=== PATIENT | female | born 1940 | race Two or more races ===

== ENCOUNTER 2025-03-21 00:13 | Inpatient (IN) | payer MEDICARE, OTHER ==
[~2025-03-21] VITALS: Ht 160 cm; Wt 46.3 kg
[2025-03-21] MEDS: IV NS 0.9% 1,000 ML BAG IV ONE (00:52)
[2025-03-21 00:57] LABS: PLATELET COUNT (AUTO) 221 K/uL (150-450); RED BLOOD CELL COUNT(AUTO) 3.73 MIL/uL (4.0-5.2); RED CELL DISTRIBUTION WIDTH 14.7 % (11.5-15.0); WHITE BLOOD COUNT (AUTO) 6.1 K/uL (4.3-11.0)
[2025-03-21 01:03] LABS: CALCIUM, SERUM 8.7 mg/dL (8.5-10.1); CREATININE 0.6 mg/dL (0.6-1.3); SODIUM SERUM 126.0 mmol/L (136-145); UREA NITROGEN, BLOOD 14.0 mg/dL (7-18)
[2025-03-21 01:09] LABS: ASPARTATE AMINOTRANSFERASE 20.0 U/L (15-37); TOTAL PROTEIN, SERUM 6.5 g/dL (6.4-8.2)
[2025-03-21 01:48] LABS: APPEARANCE,URINE SLIGHTLY CLOUDY (CLEAR); BLOOD, URINE TRACE-INTA Ery/uL (NEGATIVE); LEUKOCYTE ESTERASE ,URINE 2+ (NEGATIVE); NITRITE, URINE POSITIVE (NEGATIVE); UGLUCOSE NEGATIVE (NEGATIVE)
[2025-03-21 02:41] LABS: ADD URINE CULTURE YES; SQUAMOUS EPITHELIAL CELL,UR Few /HPF (None Seen); TRIPLE PHOSPHATE CRYSTAL,UR Few /HPF (None Seen)
[2025-03-21] MEDS ORDERED: CEFTRIAXONE 1GM BAG (ER ONLY) 50 ML IV ONE (03:05)
[2025-03-21] MEDS ORDERED: BUPR-54 PO (03:13)
[2025-03-21] MEDS ORDERED: OXYB10TA30 PO (03:13)
[2025-03-21] MEDS ORDERED: ESCI10TA PO (03:13)
[2025-03-21] MEDS ORDERED: VIT1CAPS44 PO (03:13)
[2025-03-21] MEDS ORDERED: AMIN30LI2 PO (03:13)
[2025-03-21] MEDS ORDERED: DOCU100T2 PO (03:13)
[2025-03-21] MEDS ORDERED: CHOL400T11 PO (03:13)
[2025-03-21] MEDS ORDERED: LORA10TA7 PO (03:13)
[2025-03-21] MEDS ORDERED: LEVO25TA7 PO (03:13)
[2025-03-21] MEDS ORDERED: AMLO-212 PO (03:13)
[2025-03-21] MEDS ORDERED: PANT20TA2 PO (03:13)
[2025-03-21] MEDS ORDERED: DIGO125T PO (03:13)
[2025-03-21] MEDS ORDERED: GABA-536 PO (03:13)
[2025-03-21] MEDS ORDERED: MULT-594 PO (03:13)
[2025-03-21] MEDS ORDERED: TRAZ-182 PO (03:14)
[2025-03-21] MEDS ORDERED: LATA7.5D EACHEYE (03:14)
[2025-03-21] MEDS ORDERED: PROP20TA7 PO (03:14)
[2025-03-21] MEDS ORDERED: MIRT-121 PO (03:14)
[2025-03-21] MEDS ORDERED: RIVA15TA PO (03:14)
[2025-03-21] MEDS: CEFTRIAXONE 1GM BAG (ER ONLY) 1 GM/50 ML PIGGYBACK IV ONE (03:20)
[2025-03-21] MEDS: IV NS 0.9% 1,000 ML IV SCH (04:21)
[2025-03-21] MEDS ORDERED: Z GUARD REMEDY 4 OZ OINT TP PRN (04:30)
[2025-03-21] MEDS ORDERED: ACETAMINOPHEN 650 MG/SUPP.RECT RC PRN (04:30)
[2025-03-21] MEDS ORDERED: ONDANSETRON HCL/PF 4 MG/2 ML VIAL IVP PRN (04:30)
[2025-03-21 08:00] VITALS: BP 159/61; TEMP 98.1; O2SAT 99
[2025-03-21] MEDS: CHOLECALCIFEROL (VITAMIN D 3) 400 UNIT TABLET PO SCH (10:19)
[2025-03-21] MEDS: GABAPENTIN 400 MG CAPSULE PO SCH (10:19)
[2025-03-21] MEDS: PROPRANOLOL HCL 40 MG TABLET PO SCH (10:20)
[2025-03-21] MEDS: DOCUSATE SODIUM 100 MG CAPSULE PO SCH (10:20)
[2025-03-21] MEDS: LEVOTHYROXINE SODIUM 25 MCG TABLET PO SCH (10:21)
[2025-03-21] MEDS: PANTOPRAZOLE 40 MG TABLET.DR PO SCH (10:21)
[2025-03-21] MEDS: AMLODIPINE BESYLATE 5 MG TABLET PO SCH (10:22)
[2025-03-21] MEDS: OXYBUTYNIN CHLORIDE ER 5 MG TAB PO SCH (10:22)
[2025-03-21] MEDS: BUPROPION XL 150 MG TAB.ER.24 PO SCH (10:24)
[2025-03-21] MEDS: ESCITALOPRAM OXALATE (10 MG) 10 MG TABLET PO SCH (10:24)
[2025-03-21] MEDS: DIGOXIN 0.125 MG TABLET PO SCH (10:35)
[2025-03-21] MEDS: RIVAROXABAN 15 MG TABLET PO SCH (10:41)
[2025-03-21] MEDS: HYDROCODONE/APAP 5/325MG TABLET PO PRN (14:27)
[2025-03-21 16:00] VITALS: BP 126/95; TEMP 98.2; O2SAT 96
[2025-03-21] MEDS: LATANOPROST EYE DROP 0.005% 2.5 ML BOTTLE EACHEYE SCH (18:23)
[2025-03-21 20:00] VITALS: BP 100/56; TEMP 97.7; O2SAT 94
[2025-03-21 20:34] VITALS: BP 100/56; TEMP 97.7; O2SAT 94
[2025-03-21] MEDS: TRAZODONE 50 MG TABLET PO SCH (21:59)
[2025-03-21 23:07] LABS: CREATININE, URINE 39.4 MG/DL (30.0-125.0); URINE SODIUM, RANDOM 69.0 mmol/l (40-220); URINE TOTAL PROTEIN 48.6 mg/dL (0-11.9)
[2025-03-22 04:00] VITALS: BP 117/49; TEMP 97.7; O2SAT 92
[2025-03-22 07:00] VITALS: BP 164/51; TEMP 98.2; O2SAT 95
[2025-03-22 08:08] LABS: CALCIUM, SERUM 8.5 mg/dL (8.5-10.1); CREATININE 0.3 mg/dL (0.6-1.3); PHOSPHORUS 3.3 mg/dL (2.5-4.9); SODIUM SERUM 133.0 mmol/L (136-145); UREA NITROGEN, BLOOD 9.0 mg/dL (7-18)
[2025-03-22 08:44] LABS: PLATELET COUNT (AUTO) 161 K/uL (150-450); RED BLOOD CELL COUNT(AUTO) 3.92 MIL/uL (4.0-5.2); RED CELL DISTRIBUTION WIDTH 16.9 % (11.5-15.0); WHITE BLOOD COUNT (AUTO) 4.3 K/uL (4.3-11.0)
[2025-03-22] MEDS: CEFTRIAXONE 1 G in IV D5W 50 ML IV SCH (08:47)
[2025-03-22 16:00] VITALS: BP 138/62; TEMP 98.6; O2SAT 95
[2025-03-22 20:00] VITALS: BP 130/54; TEMP 98.1; O2SAT 95
[2025-03-22] MEDS: MUPIROCIN OINT 2% 22 GM TUBE NS SCH (23:39)
[2025-03-23] VITALS: BP 109/84; TEMP 97.5; O2SAT 94
[2025-03-23 04:00] VITALS: BP 124/53; TEMP 98.2; O2SAT 95
[2025-03-23 07:00] VITALS: BP 137/31; TEMP 97.9; O2SAT 94
[2025-03-23 14:01] LABS: PLATELET COUNT (AUTO) 216 K/uL (150-450); RED BLOOD CELL COUNT(AUTO) 3.83 MIL/uL (4.0-5.2); RED CELL DISTRIBUTION WIDTH 14.7 % (11.5-15.0); WHITE BLOOD COUNT (AUTO) 6.0 K/uL (4.3-11.0)
[2025-03-23 14:21] LABS: CALCIUM, SERUM 8.2 mg/dL (8.5-10.1); CREATININE 0.4 mg/dL (0.6-1.3); PHOSPHORUS 2.8 mg/dL (2.5-4.9); SODIUM SERUM 133.0 mmol/L (136-145); UREA NITROGEN, BLOOD 7.0 mg/dL (7-18)
[2025-03-23 16:00] VITALS: BP_SYST 138; BP_SYST 142; BP_DIAS 35; BP_DIAS 45; TEMP 98.1; O2SAT 94
[2025-03-23 21:07] VITALS: BP 126/75; TEMP 97.5; O2SAT 96
[2025-03-24] MEDS ORDERED: SULF1TAB48 PO (07:59)
[2025-03-24 09:33] VITALS: BP 113/54; TEMP 97.7; O2SAT 94
== END 2025-03-24 15:00 | DRG 641 ==
LOC: ER 00:15 → TELE 02:46 → MED 03-23 10:50
PROVIDERS: ADMIT Internal Medicine; ATTEND Internal Medicine
DX: E87.1 Hypo-osmolality and hyponatremia (principal); N39.0 Urinary tract infection, site not specified; G93.49 Other encephalopathy; E44.1 Mild protein-calorie malnutrition; E78.5 Hyperlipidemia, unspecified; N32.81 Overactive bladder; E03.9 Hypothyroidism, unspecified; I11.0 Hypertensive heart disease with heart failure; I50.9 Heart failure, unspecified; F32.9 Major depressive disorder, single episode, unspecified; I48.91 Unspecified atrial fibrillation; H40.9 Unspecified glaucoma; B96.89 Other specified bacterial agents as the cause of diseases classified elsewhere; E86.9 Volume depletion, unspecified; D64.9 Anemia, unspecified; Z79.01 Long term (current) use of anticoagulants; Z79.890 Hormone replacement therapy; Z79.899 Other long term (current) drug therapy; F02.80 Dementia in other diseases classified elsewhere, unspecified severity, without behavioral disturbance, psychotic disturbance, mood disturbance, and anxiety; G30.9 Alzheimer's disease, unspecified; Z91.199 Patient's noncompliance with other medical treatment and regimen due to unspecified reason
CPT/HCPCS: 36415; 71045-TC; 73030-TC; 80048-TC; 80076-TC; 80162-TC; 81001; 82570-TC; 83690-TC; 83735-TC; 83935-TC; 84100-TC; 84300-TC; 84443-TC; 84550-TC; 85025-TC; 87081-TC; 87086-TC; 87186-TC; 93307-TC; A4223; G0378; J0696; J7030; J7050; J7060